=== PATIENT | male | born 1960 | race Caucasian/White ===

== ENCOUNTER 2016-07-03 20:45 | Inpatient (IN) | payer OTHER ==
[~2016-07-03] VITALS: Ht 170.2 cm; Wt 92.0 kg
[2016-07-03 22:40] LABS: BASOPHIL % 0.4 % (0-2); PLATELET COUNT 293 x10^3mcL (130-400); RED CELL DISTRIBUTION WIDTH 12.6 % (11.5-14.5)
[2016-07-03 23:24] LABS: CALCIUM 8.8 mg/dL (8.5-10.1); CARBON DIOXIDE 26.7 mmol/L (21-32); CREATININE SERUM 1.4 mg/dL (0.7-1.3)
[2016-07-03 23:29] LABS: ALBUMIN 3.6 g/dL (3.4-5.0); BILIRUBIN TOTAL 0.4 mg/dL (0.20-1.00); TOTAL PROTEIN, SERUM 7.7 g/dL (6.4-8.2)
[2016-07-04] VITALS (7 sets, daily range): BP systolic 103–124; BP diastolic 60–83
[2016-07-04] MEDS ORDERED: IBUPROFEN400 MG (00:12)
[2016-07-04] MEDS ORDERED: INVOKANA100 MG (00:13)
[2016-07-04] MEDS ORDERED: SIMVASTATIN10 M1 (00:13)
[2016-07-04] MEDS ORDERED: GLIPIZIDE ER2.5 M1 (00:13)
[2016-07-04] MEDS ORDERED: ZESTRIL5 MG (00:13)
[2016-07-04] MEDS ORDERED: GLUCOPHAGE XR500 MG (00:13)
[2016-07-04 01:05] LABS: T3 TOTAL 1.2 ng/mL
[2016-07-04 01:06] LABS: PHOSPHOROUS 4.2 mg/dL (2.5-4.9)
[2016-07-04 01:21] LABS: FREE T4 1.18 ng/dL (0.76-1.46); T4(THYROXINE) 8.6 ug/dL (4.7-13.3)
[2016-07-04 01:53] LABS: CHOLESTEROL/HDL RATIO 3.5
[2016-07-04 02:38] LABS: UA SPECIFIC GRAVITY 1.015 (1.005-1.035); microscopic required? YES; urine erythrocyte TRACE (NEGATIVE)
[2016-07-04 03:12] LABS: AMPHETAMINE QUAL UR NONE DETECTED (NEG <=1000)
[2016-07-04 07:48] LABS: BASOPHIL % 0.6 % (0-2); PLATELET COUNT 257 x10^3mcL (130-400); RED CELL DISTRIBUTION WIDTH 12.8 % (11.5-14.5)
[2016-07-04 08:06] LABS: ALKALINE PHOSPHATASE 106 U/L (46-116); ALT/SGPT 18 U/L (16-63); AST/SGOT 14 U/L (15-37); BILIRUBIN TOTAL 0.2 mg/dL (0.20-1.00); CALCIUM 7.7 mg/dL (8.5-10.1); CARBON DIOXIDE 23.2 mmol/L (21-32); CHLORIDE SERUM 110 mmol/L (98-107); CREATININE SERUM 1.1 mg/dL (0.7-1.3); GFR1 > 60 mL/min; GLUCOSE SERUM 113 mg/dL (74-106); POTASSIUM SERUM 4.2 mmol/L (3.5-5.1); SODIUM SERUM 142 mmol/L (136-145)
[2016-07-04 08:09] LABS: ALBUMIN 2.8 g/dL (3.4-5.0); TOTAL PROTEIN, SERUM 6.1 g/dL (6.4-8.2)
[2016-07-05 05:36] VITALS: BP 113/75
[2016-07-05 06:14] LABS: BASOPHIL % 0.4 % (0-2); PLATELET COUNT 247 x10^3mcL (130-400); RED CELL DISTRIBUTION WIDTH 12.9 % (11.5-14.5)
[2016-07-05 06:39] LABS: CALCIUM 8.2 mg/dL (8.5-10.1); CARBON DIOXIDE 26.5 mmol/L (21-32); CHLORIDE SERUM 107 mmol/L (98-107); CREATININE SERUM 0.9 mg/dL (0.7-1.3); GFR1 > 60 mL/min; GLUCOSE SERUM 72 mg/dL (74-106); PHOSPHOROUS 3.2 mg/dL (2.5-4.9); POTASSIUM SERUM 4.3 mmol/L (3.5-5.1); SODIUM SERUM 142 mmol/L (136-145)
[2016-07-05 10:41] VITALS: BP 111/81
[2016-07-05 18:06] VITALS: BP 123/81
[2016-07-05 22:01] VITALS: BP 105/61
[2016-07-06 06:25] VITALS: BP 106/73
[2016-07-06 09:20] VITALS: BP 125/72
[2016-07-06 13:39] VITALS: Ht 170.2 cm; Wt 92.0 kg
[2016-07-06] MEDS ORDERED: FLA500 PO (16:14)
[2016-07-06 16:24] VITALS: BP 125/72
[2016-07-06] MEDS ORDERED: ULTRAM50 MG PO (17:05)
== END 2016-07-06 17:33 | disposition home or self-care (01) | DRG 282 ==
LOC: ED 20:45 → MU 23:37 → DU 23:37 → MU 07-04 07:08
PROVIDERS: Emergency Medicine; Family Medicine; ADMIT Family Medicine
DX: K85.90 Acute pancreatitis without necrosis or infection, unspecified (principal); N17.0 Acute kidney failure with tubular necrosis; E11.65 Type 2 diabetes mellitus with hyperglycemia; E78.1 Pure hyperglyceridemia; I10 Essential (primary) hypertension; K57.32 Diverticulitis of large intestine without perforation or abscess without bleeding; Z68.31 Body mass index [BMI] 31.0-31.9, adult; Z79.84 Long term (current) use of oral hypoglycemic drugs; Z85.520 Personal history of malignant carcinoid tumor of kidney; Z79.1 Long term (current) use of non-steroidal anti-inflammatories (NSAID)
CPT/HCPCS: 80307; 82962; 84439; J0500; J1885; J2270; J2405; J3490; J7030; Q0092; Q0177; Q9966; Q9967

== ENCOUNTER 2016-07-12 13:01 | Inpatient (IN) | payer OTHER ==
[~2016-07-12] VITALS: Ht 180.3 cm; Wt 107.5 kg
[~2016-07-12 13:01] MED LIST: FLA500 PO; GLIPIZIDE ER2.5 M1; GLUCOPHAGE XR500 MG; IBUPROFEN400 MG; INVOKANA100 MG; SIMVASTATIN10 M1; ULTRAM50 MG PO; ZESTRIL5 MG
[2016-07-12 14:13] LABS: BASOPHIL % 0.4 % (0-2); PLATELET COUNT 258 x10^3mcL (130-400); RED CELL DISTRIBUTION WIDTH 12.9 % (11.5-14.5)
[2016-07-12 14:20] LABS: CALCIUM 8.5 mg/dL (8.5-10.1); CARBON DIOXIDE 29.4 mmol/L (21-32); CHLORIDE SERUM 103 mmol/L (98-107); CREATININE SERUM 1.2 mg/dL (0.7-1.3); GFR1 > 60 mL/min; GLUCOSE SERUM 166 mg/dL (74-106); POTASSIUM SERUM 4.3 mmol/L (3.5-5.1); SODIUM SERUM 141 mmol/L (136-145)
[2016-07-12 14:25] LABS: ALKALINE PHOSPHATASE 117 U/L (46-116); ALT/SGPT 22 U/L (16-63); AST/SGOT 13 U/L (15-37); BILIRUBIN TOTAL 0.4 mg/dL (0.20-1.00); LIPASE 271 IU/L (73-393); TOTAL PROTEIN, SERUM 6.9 g/dL (6.4-8.2)
[2016-07-12 14:26] LABS: ALBUMIN 3.2 g/dL (3.4-5.0)
[2016-07-12] MEDS ORDERED: NEURONTIN400 MG (15:31)
[2016-07-12 15:55] LABS: UA SPECIFIC GRAVITY >=1.030 (1.005-1.035)
[2016-07-12 15:57] LABS: microscopic required? YES; urine erythrocyte TRACE (NEGATIVE)
[2016-07-12 16:45] LABS: AMPHETAMINE QUAL UR NONE DETECTED (NEG <=1000)
[2016-07-12 16:47] LABS: CHOLESTEROL/HDL RATIO 2.7
[2016-07-12 16:48] VITALS: BP 113/65
[2016-07-12 16:51] LABS: FREE T4 1.17 ng/dL (0.76-1.46); FREE THYROXINE INDEX 2.5 ug/dL (1.4-4.5); T3 TOTAL 1.04 ng/mL; T4(THYROXINE) 7.6 ug/dL (4.7-13.3)
[2016-07-12 18:54] VITALS: BP 113/65
[2016-07-12 19:40] VITALS: BP 105/70
[2016-07-13 06:10] VITALS: BP 110/72
[2016-07-13 06:15] LABS: BASOPHIL % 0.6 % (0-2); PLATELET COUNT 227 x10^3mcL (130-400); RED CELL DISTRIBUTION WIDTH 12.1 % (11.5-14.5)
[2016-07-13 06:24] LABS: CALCIUM 7.9 mg/dL (8.5-10.1); CARBON DIOXIDE 26.8 mmol/L (21-32); CHLORIDE SERUM 110 mmol/L (98-107); CREATININE SERUM 1.1 mg/dL (0.7-1.3); GFR1 > 60 mL/min; GLUCOSE SERUM 113 mg/dL (74-106); MAGNESIUM 1.8 mg/dL (1.8-2.4); POTASSIUM SERUM 5.3 mmol/L (3.5-5.1); SODIUM SERUM 143 mmol/L (136-145)
[2016-07-13 09:32] VITALS: BP 111/72
[2016-07-13 13:06] VITALS: BP 111/73
[2016-07-13 16:26] VITALS: BP 112/65
[2016-07-13 19:15] VITALS: BP 104/65
[2016-07-13 21:08] VITALS: BP 118/74
[2016-07-14] VITALS (7 sets, daily range): BP systolic 111–130; BP diastolic 64–81
[2016-07-14 06:10] LABS: BASOPHIL % 0.5 % (0-2); PLATELET COUNT 239 x10^3mcL (130-400); RED CELL DISTRIBUTION WIDTH 12.5 % (11.5-14.5)
[2016-07-14 06:37] LABS: CALCIUM 8.5 mg/dL (8.5-10.1); CARBON DIOXIDE 29.1 mmol/L (21-32); CHLORIDE SERUM 108 mmol/L (98-107); CREATININE SERUM 1.1 mg/dL (0.7-1.3); GFR1 > 60 mL/min; GLUCOSE SERUM 156 mg/dL (74-106); MAGNESIUM 1.8 mg/dL (1.8-2.4); PHOSPHOROUS 3.5 mg/dL (2.5-4.9); SODIUM SERUM 144 mmol/L (136-145)
[2016-07-14 06:38] LABS: POTASSIUM SERUM 5.6 mmol/L (3.5-5.1)
[2016-07-14 16:26] LABS: CALCIUM 8.1 mg/dL (8.5-10.1); CARBON DIOXIDE 29.9 mmol/L (21-32); CHLORIDE SERUM 106 mmol/L (98-107); CREATININE SERUM 1.1 mg/dL (0.7-1.3); GFR1 > 60 mL/min; GLUCOSE SERUM 148 mg/dL (74-106); POTASSIUM SERUM 3.8 mmol/L (3.5-5.1); SODIUM SERUM 144 mmol/L (136-145)
[2016-07-15 05:45] VITALS: BP 121/78
[2016-07-15 06:03] LABS: BASOPHIL % 0.5 % (0-2); PLATELET COUNT 234 x10^3mcL (130-400); RED CELL DISTRIBUTION WIDTH 12.6 % (11.5-14.5)
[2016-07-15 06:13] LABS: CALCIUM 7.9 mg/dL (8.5-10.1); CARBON DIOXIDE 30.3 mmol/L (21-32); CHLORIDE SERUM 108 mmol/L (98-107); CREATININE SERUM 1.1 mg/dL (0.7-1.3); GFR1 > 60 mL/min; GLUCOSE SERUM 129 mg/dL (74-106); MAGNESIUM 1.7 mg/dL (1.8-2.4); PHOSPHOROUS 3.6 mg/dL (2.5-4.9); SODIUM SERUM 144 mmol/L (136-145)
[2016-07-15 10:26] VITALS: BP 109/65
[2016-07-15 17:53] VITALS: BP 129/78
[2016-07-15 22:14] VITALS: BP 122/80
[2016-07-15 23:20] VITALS: BP 105/62
[2016-07-16] MEDS ORDERED: ZESTRIL20 MG PO (05:51)
[2016-07-16] MEDS ORDERED: ELA25 PO (05:52)
[2016-07-16] MEDS ORDERED: DEB AU (05:53)
[2016-07-16] MEDS ORDERED: SIMETHICONE80 MG CH (05:54)
[2016-07-16] MEDS ORDERED: PANTOPRAZOLE SO40 M1 PO (05:55)
[2016-07-16 06:09] VITALS: BP 101/62
[2016-07-16 06:37] LABS: CALCIUM 8.3 mg/dL (8.5-10.1); CARBON DIOXIDE 26.7 mmol/L (21-32); CHLORIDE SERUM 107 mmol/L (98-107); CREATININE SERUM 1.2 mg/dL (0.7-1.3); GFR1 > 60 mL/min; GLUCOSE SERUM 157 mg/dL (74-106); MAGNESIUM 3.1 mg/dL (1.8-2.4); PHOSPHOROUS 3.5 mg/dL (2.5-4.9); POTASSIUM SERUM 4.8 mmol/L (3.5-5.1); SODIUM SERUM 142 mmol/L (136-145)
[2016-07-16 06:47] LABS: BASOPHIL % 0.7 % (0-2); PLATELET COUNT 238 x10^3mcL (130-400); RED CELL DISTRIBUTION WIDTH 12.5 % (11.5-14.5)
[2016-07-16] MEDS ORDERED: CARAFATE1 GM PO (09:36)
[2016-07-16] MEDS ORDERED: FLA500 PO (09:48)
[2016-07-16] MEDS ORDERED: LEVOFLOXACIN500 M1 PO (09:50)
[2016-07-16 10:07] VITALS: BP 120/83
[2016-07-16 11:24] VITALS: BP 120/83
== END 2016-07-16 13:52 | disposition home or self-care (01) | DRG 241 ==
LOC: ED 13:01 → MU 15:43 → DU 15:43 → MU 07-14 17:40 → DU 07-16 04:46
PROVIDERS: Emergency Medicine; Family Medicine; Internal Medicine Gastroenterology; ADMIT Family Medicine
PROC: 0DB98ZX Excision of Duodenum, Via Natural or Artificial Opening Endoscopic, Diagnostic (ICD-10-PCS; principal; 2016-07-15 13:00)
PROC: 0DB68ZX Excision of Stomach, Via Natural or Artificial Opening Endoscopic, Diagnostic (ICD-10-PCS; 2016-07-15 13:00)
DX: K29.70 Gastritis, unspecified, without bleeding (principal); D68.69 Other thrombophilia; E11.42 Type 2 diabetes mellitus with diabetic polyneuropathy; E11.65 Type 2 diabetes mellitus with hyperglycemia; E44.1 Mild protein-calorie malnutrition; K26.7 Chronic duodenal ulcer without hemorrhage or perforation; K21.9 Gastro-esophageal reflux disease without esophagitis; K57.32 Diverticulitis of large intestine without perforation or abscess without bleeding; I10 Essential (primary) hypertension; F33.1 Major depressive disorder, recurrent, moderate; F41.1 Generalized anxiety disorder; F10.10 Alcohol abuse, uncomplicated; R31.9 Hematuria, unspecified; E87.5 Hyperkalemia; E78.1 Pure hyperglyceridemia; E78.5 Hyperlipidemia, unspecified; E66.9 Obesity, unspecified; Z68.33 Body mass index [BMI] 33.0-33.9, adult; Z87.891 Personal history of nicotine dependence; Z85.520 Personal history of malignant carcinoid tumor of kidney; Z79.84 Long term (current) use of oral hypoglycemic drugs
CPT/HCPCS: 43235; 80307; 83880; 84439; C9113; G0480; J0696; J1200; J1610; J1885; J1956; J2250; J2310; J2405; J3010; J3490; J7030; J7042; Q0092; Q9967

== ENCOUNTER 2017-04-09 12:32 | Inpatient (IN) | payer OTHER ==
[~2017-04-09] VITALS: Ht 175.3 cm; Wt 107.6 kg
[~2017-04-09 12:32] MED LIST changes: +CARAFATE1 GM PO; +DEB AU; +ELA25 PO; +LEVOFLOXACIN500 M1 PO; +NEURONTIN400 MG; +PANTOPRAZOLE SO40 M1 PO; +SIMETHICONE80 MG CH; +ZESTRIL20 MG PO
[2017-04-09 14:49] LABS: UA SPECIFIC GRAVITY >=1.030 (1.005-1.035); microscopic required? YES; urine erythrocyte 1+ (NEGATIVE)
[2017-04-09 14:56] LABS: BASOPHIL % 0.5 % (0-2); PLATELET COUNT 245 x10^3mcL (130-400); RED CELL DISTRIBUTION WIDTH 12.7 % (11.5-14.5)
[2017-04-09 15:12] LABS: CALCIUM 8.7 mg/dL (8.5-10.1); CARBON DIOXIDE 26.4 mmol/L (21-32); CHLORIDE SERUM 103 mmol/L (98-107); CREATININE SERUM 1.1 mg/dL (0.7-1.3); GFR1 > 60 mL/min; GLUCOSE SERUM 175 mg/dL (74-106); POTASSIUM SERUM 3.9 mmol/L (3.5-5.1); SODIUM SERUM 140 mmol/L (136-145)
[2017-04-09 15:19] LABS: ALBUMIN 3.6 g/dL (3.4-5.0); ALKALINE PHOSPHATASE 107 U/L (46-116); ALT/SGPT 36 U/L (16-63); AST/SGOT 18 U/L (15-37); BILIRUBIN TOTAL 0.39 mg/dL (0.20-1.00); TOTAL PROTEIN, SERUM 7.6 g/dL (6.4-8.2)
[2017-04-09 15:28] LABS: LIPASE 2142 IU/L (73-393)
[2017-04-09 16:36] LABS: T3 TOTAL 0.86 ng/mL
[2017-04-09 16:46] LABS: FREE T4 1.04 ng/dL (0.76-1.46); FREE THYROXINE INDEX 3.1 ug/dL (1.4-4.5); T4(THYROXINE) 8.7 ug/dL (4.7-13.3)
[2017-04-09 16:55] VITALS: BP 146/87
[2017-04-09 17:08] LABS: AMPHETAMINE QUAL UR NONE DETECTED (NEG <=1000)
[2017-04-09 17:12] VITALS: BP 146/87
[2017-04-09 17:14] VITALS: Ht 175.3 cm; Wt 107.6 kg
[2017-04-09 17:32] LABS: CHOLESTEROL/HDL RATIO 3.9; MAGNESIUM 1.7 mg/dL (1.8-2.4); PHOSPHOROUS 3.2 mg/dL (2.5-4.9)
[2017-04-09 20:57] VITALS: BP 114/75
[2017-04-10 05:04] VITALS: BP 117/78
[2017-04-10 06:52] VITALS: BP 101/58; BP 92/51
[2017-04-10 10:17] VITALS: BP 111/78
[2017-04-10 13:21] LABS: BASOPHIL % 0.4 % (0-2); PLATELET COUNT 241 x10^3mcL (130-400); RED CELL DISTRIBUTION WIDTH 12.7 % (11.5-14.5)
[2017-04-10 13:44] LABS: CALCIUM 8.5 mg/dL (8.5-10.1); CHLORIDE SERUM 107 mmol/L (98-107); GFR1 > 60 mL/min; GLUCOSE SERUM 135 mg/dL (74-106); MAGNESIUM 1.8 mg/dL (1.8-2.4); PHOSPHOROUS 3.4 mg/dL (2.5-4.9); POTASSIUM SERUM 4.9 mmol/L (3.5-5.1); SODIUM SERUM 142 mmol/L (136-145)
[2017-04-10 14:17] VITALS: BP 116/80
[2017-04-10 18:54] VITALS: BP 107/74
[2017-04-10 21:54] VITALS: BP 109/62
[2017-04-11 05:33] VITALS: BP 117/80
[2017-04-11 06:37] LABS: BASOPHIL % 0.5 % (0-2); PLATELET COUNT 242 x10^3mcL (130-400); RED CELL DISTRIBUTION WIDTH 12.4 % (11.5-14.5)
[2017-04-11 06:54] LABS: CALCIUM 8.6 mg/dL (8.5-10.1); CARBON DIOXIDE 27.7 mmol/L (21-32); CHLORIDE SERUM 106 mmol/L (98-107); GFR1 > 60 mL/min; GLUCOSE SERUM 116 mg/dL (74-106); PHOSPHOROUS 2.9 mg/dL (2.5-4.9); POTASSIUM SERUM 4.2 mmol/L (3.5-5.1); SODIUM SERUM 142 mmol/L (136-145)
[2017-04-11 09:32] VITALS: BP 106/66
[2017-04-11] MEDS ORDERED: ZOCOR20 MG GT (10:25)
[2017-04-11] MEDS ORDERED: METFORMIN HCL850 MG PO (10:25)
[2017-04-11] MEDS ORDERED: LEVAQUIN750 MG PO (10:26)
[2017-04-11] MEDS ORDERED: BD LACTINEX1.4 MG PO (10:26)
[2017-04-11] MEDS ORDERED: PANTOPRAZOLE SO40 M1 PO (10:27)
[2017-04-11] MEDS ORDERED: FLA500 PO (10:29)
[2017-04-11] MEDS ORDERED: NORCO1 TA2 PO (10:31)
[2017-04-11 11:44] VITALS: BP 106/66
== END 2017-04-11 13:10 | disposition home or self-care (01) | DRG 244 ==
LOC: ED 12:32 → DU 15:33
PROVIDERS: Emergency Medicine; Family Medicine
DX: K57.32 Diverticulitis of large intestine without perforation or abscess without bleeding (principal); N17.0 Acute kidney failure with tubular necrosis; E11.21 Type 2 diabetes mellitus with diabetic nephropathy; E11.65 Type 2 diabetes mellitus with hyperglycemia; D68.69 Other thrombophilia; E11.22 Type 2 diabetes mellitus with diabetic chronic kidney disease; K85.90 Acute pancreatitis without necrosis or infection, unspecified; E78.5 Hyperlipidemia, unspecified; R21 Rash and other nonspecific skin eruption; R80.9 Proteinuria, unspecified; K21.9 Gastro-esophageal reflux disease without esophagitis; Z90.5 Acquired absence of kidney; Z68.34 Body mass index [BMI] 34.0-34.9, adult; Z79.84 Long term (current) use of oral hypoglycemic drugs; Z85.520 Personal history of malignant carcinoid tumor of kidney; Z91.19 Patient's noncompliance with other medical treatment and regimen; I12.9 Hypertensive chronic kidney disease with stage 1 through stage 4 chronic kidney disease, or unspecified chronic kidney disease; N18.2 Chronic kidney disease, stage 2 (mild); Z87.891 Personal history of nicotine dependence; R31.9 Hematuria, unspecified
CPT/HCPCS: 82962; 83880; 84439; 90658; 94150; J0696; J1956; J2405; J3010; J3475; J3490; J7030; J7040; J7042; Q0092